=== PATIENT | male | born 1940 | race Hispanic/Latino ===

== ENCOUNTER → 2024-01-05 | Outpatient (CLI) | payer OTHER | END | disposition home or self-care (01) | LOC: SHCH 15:03 | PROVIDERS: ATTEND Internal Medicine Cardiovascular Disease | DX: I08.3 Combined rheumatic disorders of mitral, aortic and tricuspid valves (principal); I25.10 Atherosclerotic heart disease of native coronary artery without angina pectoris; E78.5 Hyperlipidemia, unspecified | CPT/HCPCS: 93306 ==

== ENCOUNTER 2024-02-24 07:37 | Observation (INO) | payer OTHER ==
[2024-02-22 09:37] LABS: BASOPHILS # (AUTO) 0.05 K/uL (0.00-0.20); BASOPHILS % (AUTO) 0.8 % (0.0-5.0); EOSINOPHILS # (AUTO) 0.06 K/uL (0.00-0.70); HEMATOCRIT 37.9 % (42-54); IMMATURE GRANULOCYTE ABSOLUTE 0.02 K/uL (0-1); LYMPHOCYTES % (AUTO) 15.9 % (21.0-51.0); MEAN CORPUSCULAR HEMOGLOBIN 30.4 pg (27.0-33.0); MEAN CORPUSCULAR HGB CONC 32.7 g/dL (32.0-36.0); MEAN CORPUSCULAR VOLUME 92.9 fL (79-99); MONOCYTES # (AUTO) 0.7 K/uL (0.1-1.0); MONOCYTES % (AUTO) 11.6 % (3.0-13.0); NEUTROPHILS # (AUTO) 4.4 K/uL (1.8-7.7); NEUTROPHILS % (AUTO) 70.4 % (40.0-77.0); PLATELET COUNT (AUTO) 136 K/uL (130-400); RED BLOOD CELL COUNT(AUTO) 4.08 MIL/uL (4.50-6.20); RED CELL DISTRIBUTION WIDTH 15.3 % (11.0-15.5); WHITE BLOOD COUNT (AUTO) 6.3 K/uL (4.8-10.8)
[2024-02-22 09:46] LABS: INR 1.07 (0.85-1.15); PROTHROMBIN TIME 12.6 SEC (9.6-11.6)
[2024-02-22 09:48] LABS: PARTIAL THROMBOPLASTIN TIME 27.2 SEC (26.3-35.5)
[2024-02-22 09:51] LABS: CREATININE 4.6 mg/dL (0.5-1.3); POTASSIUM 4.6 mmol/L (3.5-5.1)
[2024-02-22 10:02] LABS: B-TYPE NATRIURETIC PEPTIDE > 5000 pg/mL (0-100)
[2024-02-22 10:09] LABS: APPEARANCE,URINE CLEAR (CLEAR); BILIRUBIN,URINE NEGATIVE (NEGATIVE); COLOR,URINE LIGHT-YELLOW (YELLOW); GLUCOSE, URINE (UA) >=1000 mg/dL (NEGATIVE); KETONES,URINE NEGATIVE (NEGATIVE); LEUKOCYTE ESTERASE ,URINE NEGATIVE Leu/uL (NEGATIVE); NITRATE,URINE NEGATIVE (NEGATIVE); PH,URINE 7.5 (5.0-8.0); PROTEIN,URINE 300 mg/dL (NEGATIVE); UROBILINOGEN,URINE 0.2 mg/dL (0.2-1.0)
[2024-02-22 10:11] VITALS: BP 138/60; PULSE 58; RESP 18
[2024-02-22 10:12] LABS: ADD UA MICROSCOPIC YES
[2024-02-22 10:14] LABS: RBC,URINE 0-1 /HPF (0-1); SQUAMOUS EPITHELIAL CELL,UR RARE /HPF (0-2)
[2024-02-24] VITALS (22 sets, daily range): BP systolic 122–145; BP diastolic 1–75; PULSE 43–57; RESP 14–22; O2SAT 99
[~2024-02-24] VITALS: Ht 172.7 cm; Wt 73.0 kg
[~2024-02-24 07:37] MED LIST: ATOR-2 PO; CYAN-106 PO; FERR-82 PO; FURO80TA3 PO; INSLAN SQ; LEVO50CA4 PO; LOSA50TA64 PO; METO-408 PO; NIFE-39 PO; SEVE800T7 PO; SODI650T PO
[2024-02-24] MEDS: 0.9%NACL 1000ML 1,000 ML IV ONE (08:37)
[2024-02-24] MEDS ORDERED: LIDOCAINE HCL 400MG/20ML VIAL ONE ×2 (10:04→11:49)
[2024-02-24] MEDS ORDERED: SODIUM BICARB 50MEQ 50ML VIAL 50 ML ONE (10:04)
[2024-02-24] MEDS ORDERED: MEPERIDINE-PF 25 MG/ML SYG ONE ×4 (10:04→13:16)
[2024-02-24] MEDS ORDERED: HEPARIN 10,000 UNIT/10ML (1,000 UNIT/ML) VIAL ONE (10:05)
[2024-02-24] MEDS ORDERED: MIDAZOLAM HCL 1 MG/ML 2ML VIAL ONE ×3 (10:05→12:07)
[2024-02-24] MEDS ORDERED: NICARDIPINE 25MG INJ IV ONE (10:06)
[2024-02-24] MEDS ORDERED: IOHEXOL-350 50ML VIAL IV ONE (10:06)
[2024-02-24] MEDS ORDERED: IOHEXOL 350 MG/ML 100ML INFUS..BTL IV ONE (10:07)
[2024-02-24] MEDS ORDERED: NITROGLYCERIN 50MG VIAL ONE (10:18)
[2024-02-24] MEDS ORDERED: ATROPINE 1MG SYG IVP ONE (11:00)
[2024-02-24] MEDS ORDERED: DOPAMINE HCL 400 MG/D5%-WATER 0 ML IV ONE (11:47)
[2024-02-24] MEDS ORDERED: PHENYLEPHRINE HCL 10 MG/ML 1ML VIAL IV ONE (12:00)
[2024-02-24] MEDS ORDERED: EPHEDRINE SULFATE 50 MG/ML AMPULE ONE (12:00)
[2024-02-24] MEDS ORDERED: PROPOFOL 10 MG/ML 20ML VIAL IV ONE (12:00)
[2024-02-24] MEDS ORDERED: SUCCINYLCHOLINE CHLORIDE 20 MG/ML 10 ML VIAL ONE (12:01)
[2024-02-24] MEDS ORDERED: ROCURONIUM BROMIDE 10MG/1ML 5ML VL ONE (12:01)
[2024-02-24] MEDS ORDERED: PROPOFOL 1000 MG/100 ML 100 ML IV ONE (12:05)
[2024-02-24] MEDS ORDERED: KETAMINE 50MG/ML SYRINGE 50 MG/ML DISP.SYRIN ONE ×2 (12:06→12:07)
[2024-02-24 12:32] LABS: ABG HCO3 30.1 mmol/L (21.0-28.0); ABG OXYGEN SATURATION 98.2 % (95.0-99.0); ABG PCO2 46 mmHg (35-48); ABG PH 7.431 (7.35-7.450); CARBON MONOXIDE 0.5; HHb 1.8; PO2, ARTERIAL BG 115.9 mmHg (83.0-108.0); VENT MODE, BG ANT VEMT (ROOM AIR)
[2024-02-24] MEDS ORDERED: IOHEXOL-350 75 ML VIAL IV ONE (12:48)
[2024-02-24] MEDS: 0.9%NACL 10ML VIAL IV SCH (14:00)
[2024-02-24] MEDS: CLOPIDOGREL 300MG TAB PO STA (15:11)
[2024-02-24] MEDS: ASPIRIN 325MG TAB PO STA (15:11)
[2024-02-24] MEDS: SEVELAMER HCL 800 MG TABLET PO SCH (17:00)
[2024-02-24] MEDS: FUROSEMIDE 80 MG TABLET PO SCH (20:57)
[2024-02-24] MEDS: SODIUM BICARBONATE 650 MG TAB PO SCH (20:57)
[2024-02-24] MEDS: INSULIN GLARGINE 100 UNITS/ML 10 ML VIAL SQ SCH (21:00)
[2024-02-25] VITALS (20 sets, daily range): BP systolic 141–173; BP diastolic 70–93; PULSE 63–78; RESP 14–20; TEMP 98–98.2; O2SAT 97
[2024-02-25 04:50] LABS: HEMATOCRIT 36.4 % (42-54); MEAN CORPUSCULAR HEMOGLOBIN 29.8 pg (27.0-33.0); MEAN CORPUSCULAR HGB CONC 32.4 g/dL (32.0-36.0); MEAN CORPUSCULAR VOLUME 91.9 fL (79-99); RED BLOOD CELL COUNT(AUTO) 3.96 MIL/uL (4.50-6.20); RED CELL DISTRIBUTION WIDTH 15.6 % (11.0-15.5); WHITE BLOOD COUNT (AUTO) 7.2 K/uL (4.8-10.8)
[2024-02-25 05:17] LABS: CREATININE 4.6 mg/dL (0.5-1.3); MAGNESIUM 2.2 mg/dL (1.80-2.40); POTASSIUM 4.4 mmol/L (3.5-5.1)
[2024-02-25] MEDS: LEVOTHYROXINE 50 MCG TABLET PO SCH (05:40)
[2024-02-25] MEDS: CYANOCOBALAMIN (VITAMIN B-12) 1,000 MCG TABLET PO SCH (08:49)
[2024-02-25] MEDS: ASPIRIN 81MG CHEW TAB PO SCH (08:50)
[2024-02-25] MEDS: METOPROLOL SUCCINATE 25 MG TAB.SR.24H PO SCH (08:50)
[2024-02-25] MEDS: NIFEDIPINE ER 30 MG TAB PO SCH (08:50)
[2024-02-25] MEDS: ATORVASTATIN 10 MG TABLET PO SCH (08:50)
[2024-02-25] MEDS: FERROUS SULFATE 325 MG TABLET.DR PO SCH (08:51)
[2024-02-25] MEDS: LOSARTAN 50 MG TABLET PO SCH (08:51)
[2024-02-25] MEDS: CLOPIDOGREL 75MG TAB PO SCH (08:51)
[2024-02-25] MEDS ORDERED: CLONIDINE HCL 0.1 MG TABLET PO PRN (14:30)
[2024-02-25] MEDS: HEPARIN 5,000 UNIT VIAL IRRIG PRN (14:33)
[2024-02-25] MEDS ORDERED: CLOP-31 PO (15:35)
[2024-02-25] MEDS ORDERED: ASPI-1005 PO (15:35)
[2024-02-27 14:05] LABS: HEPATITIS B SURFACE ANTIGEN Non-Reactive (Nonreactive)
[2024-02-27 14:06] LABS: HEPATITIS B CORE AB TOTAL Non-Reactive (Nonreactive); HEPATITIS B SURFACE ANTIBODY Negative (Reactive)
== END 2024-02-25 17:50 | disposition home or self-care (01) ==
LOC: DAH 07:37 → DAHIP 07:38 → 2AH 15:00
PROVIDERS: ADMIT Internal Medicine Pulmonary Disease; ATTEND Internal Medicine Pulmonary Disease
DX: I25.10 Atherosclerotic heart disease of native coronary artery without angina pectoris (principal); I25.5 Ischemic cardiomyopathy; E87.1 Hypo-osmolality and hyponatremia; I13.2 Hypertensive heart and chronic kidney disease with heart failure and with stage 5 chronic kidney disease, or end stage renal disease; E11.22 Type 2 diabetes mellitus with diabetic chronic kidney disease; N18.6 End stage renal disease; I50.20 Unspecified systolic (congestive) heart failure; E83.52 Hypercalcemia; E78.5 Hyperlipidemia, unspecified; D64.9 Anemia, unspecified; R60.0 Localized edema; Z99.2 Dependence on renal dialysis; Z79.899 Other long term (current) drug therapy
CPT/HCPCS: 80048 ×2; 83880 ×2; 85025; 85610; 85730; 81001; 36415 ×2; 71045 ×2; 93005; 93460; 82435; 82947; 84132; 84295; 82803; 85347 ×3; 85018; 82948 ×6; 83605; 83735; 85027; 86706; 87340; 86704; 93970; 90935; C1769 ×7; C1887 ×4; C1894 ×6; C1760 ×5; C1874 ×4; C1893; Q9965; C1725 ×2; G0378 ×24; J3490 ×6; J7030; J1644 ×5; J2250 ×3; J2704; J2175 ×3; Q9967 ×3; A4215; A4223 ×3; A4222; A4221; A4663; A4216; A4606; C9600 ×2; 93461; 99156; 99157; J0330; J0461; J1265; J2371; G0257